=== PATIENT | male | born 1960 | race African-American/Black ===

== ENCOUNTER 2017-02-06 05:13 | Inpatient (IN) | payer OTHER ==
[~2017-02-06] VITALS: Ht 175.3 cm; Wt 107.5 kg
[2017-02-06] MEDS ORDERED: SODIUM CHLORIDE 0.9% 1,000 ML IV ONE (05:35)
[2017-02-06] MEDS ORDERED: INSULIN REGULAR (HUMULIN R) 300UNITS/3ML IV ONE (05:45)
[2017-02-06 06:01] LABS: BASOPHILS % 0.7 % (0.0-2.0); DIFFERENTIAL COMMENT 0; EOSINOPHILS % 0.3 % (0.0-5.0); HEMATOCRIT. 40.3 % (42.0-52.0); HEMOGLOBIN. 14.2 g/dL (14.0-18.0); LYMPHOCYTES % 15.4 % (20.0-50.0); MEAN CORPUSCULAR HEMOGLOBIN 27.5 pg (28.0-32.0); MEAN CORPUSCULAR HGB CONC 35.2 g/dL (31.0-37.0); MEAN CORPUSCULAR VOLUME 78.2 fL (80.0-94.0); MEAN PLATELET VOLUME 9.1 fl (7.4-10.4); MONOCYTES % 8.8 % (2.0-8.0); NEUTROPHILS % 74.8 % (40.0-76.0); PLATELET 176 x1000/uL (130-400); RED BLOOD CELL COUNT 5.15 mill/uL (4.7-6.1); RED CELL DISTRIBUTION WIDTH 14.4 % (11.6-14.6); WHITE BLOOD COUNT 10.2 x1000/uL (4.5-11.0)
[2017-02-06] MEDS ORDERED: AMLODIPINE 10MG TABLET PO ONE (06:15)
[2017-02-06] MEDS ORDERED: PIPERACILLIN SODIUM/TAZOBACTAM 4.5 G in DEXT 5% WATER 100 ML IV ONE (06:15)
[2017-02-06] MEDS ORDERED: VANCOMYCIN 1 G PREMIX 200 ML IV ONE (06:15)
[2017-02-06 06:16] LABS: ALANINE AMINOTRANSFERASE 22 IU/L (13-61); ALBUMIN 3.6 g/dL (3.4-5.0); ANION GAP 14; BETA HYDROXYBUTYRATE 0.1 mMol/L (0.0-0.3); CARBON DIOXIDE 25 mEq/L (21-32); CHLORIDE 101 mEq/L (98-107); INDEX HEMOLYSI 1 (1-3); INDEX ICTERIC 1 (1-4); INDEX LIPEMIC 1 (1-3); LIPASE 118 IU/L (73-393); TROPONIN I < 0.02 ng/mL (0.00-0.04); UREA NITROGEN BLOOD 17 mg/dL (7-21); eGFR > 60 mL/min (>60)
[2017-02-06 06:25] LABS: CLARITY URINE CLOUDY (CLEAR); COLOR URINE YELLOW (YELLOW); GLUCOSE URINE 3+ (NEGATIVE); KETONES URINE NEGATIVE (NEGATIVE); LEUKOCYTE ESTERASE URINE NEGATIVE (NEGATIVE); NITRITE URINE NEGATIVE (NEGATIVE); OCCULT BLOOD URINE NEGATIVE (NEGATIVE); PROTEIN URINE NEGATIVE (NEGATIVE); SPECIFIC GRAVITY URINE 1.038 (1.005-1.030); UROBILINOGEN URINE 0.2 E.U./dL (0.2-1.0)
[2017-02-06 07:00] LABS: *AMPHETAMINES SCREEN URINE NEGATIVE (NEGATIVE); *BARBITURATES SCREEN URINE NEGATIVE (NEGATIVE); *BENZODIAZEPINES SCREEN URINE NEGATIVE (NEGATIVE); *COCAINE SCREEN URINE NEGATIVE (NEGATIVE); CANNABINOID URINE SCREEN PRESUMTIVE POSITIVE (NEGATIVE); ECSTASY MDMA SCREEN URINE NEGATIVE (NEGATIVE); METHADONE URINE SCREEN NEGATIVE (NEGATIVE); OPIATES URINE SCREEN NEGATIVE (NEGATIVE); PHENCYCLIDINE URINE SCREEN NEGATIVE (NEGATIVE)
[2017-02-06 07:39] LABS: LACTIC ACID 2.3 mmol/L (0.4-2.0)
[2017-02-06 07:59] LABS: WBC URINE 0-2 /hpf (0-2)
[2017-02-06 08:00] LABS: BACTERIA URINE 2+; SQUAMOUS EPITHELIAL CELL URINE FEW /lpf (RARE/1+)
[2017-02-06 08:02] LABS: RBC URINE 0-2 /hpf (0-2)
[2017-02-06 09:07] LABS: ETHANOL BLOOD < 10 mg/dL; PHENYTOIN 0.6 ug/mL (10-20)
[2017-02-06 09:13] LABS: CARBAMAZEPINE < 0.5 ug/mL (4-12); PHENOBARBITAL < 2.1 ug/mL (15.0-40.0); VALPROIC ACID 3.5 ug/mL (50-100)
[2017-02-06] MEDS ORDERED: DIPHENHYDRAMINE 50MG/ML VIAL IV PRN (09:45)
[2017-02-06] MEDS ORDERED: ONDANSETRON HCL 4MG/2ML VIAL IV PRN (09:45)
[2017-02-06] MEDS ORDERED: ACETAMINOPHEN 325MG TABLET PO PRN (09:45)
[2017-02-06] MEDS ORDERED: IPRATROPIUM/ALBUTEROL 0.5-3(2.5)MG/3ML NEB INH PRN (09:45)
[2017-02-06] MEDS ORDERED: DEXTROSE 50% WATER 50ML SYRINGE IV PRN (09:45)
[2017-02-06] MEDS ORDERED: INSULIN DETEMIR UD 100 UNITS/ML SYR SUBCUT SCH (10:00)
[2017-02-06] MEDS: CLONIDINE 0.1MG TABLET PO PRN (10:50)
[2017-02-06] MEDS: BLOOD SUGAR DIAGNOSTIC STRIP TEST SCH ×3 (13:00→21:01)
[2017-02-06] MEDS: INSULIN LISPRO 100 UNITS/ML SUBCUT SCH ×3 (13:17→21:17)
[2017-02-06 14:37] VITALS: BP_SYST 140; BP_SYST 147; BP_DIAS 94
[2017-02-06] MEDS ORDERED: PIPERACILLIN/TAZ 3.375G PREMIX 50 ML IV SCH (15:00)
[2017-02-06] MEDS ORDERED: DIVALPROEX SODIUM 250MG ER TABLET PO SCH (15:30)
[2017-02-06] MEDS: AMLODIPINE 10MG TABLET PO SCH (16:03)
[2017-02-06] MEDS: DIVALPROEX SODIUM 500MG ER TABLET PO SCH (17:09)
[2017-02-06] MEDS: PIPERACILLIN/TAZ 3.375G PREMIX 50 ML IV SCH ×2 (17:09→23:10)
[2017-02-06] MEDS ORDERED: LORAZEPAM 2MG/ML CPJ IV NR (17:45)
[2017-02-06 20:10] VITALS: BP 134/80
[2017-02-06] MEDS: INSULIN DETEMIR UD 100 UNITS/ML SYR SUBCUT SCH (21:18)
[2017-02-07] VITALS: BP 125/66
[2017-02-07 04:00] VITALS: BP 155/103
[2017-02-07] MEDS: HYDROCODONE/ACETAMINOPHEN 5/325MG TABLET PO PRN ×2 (04:33→19:09)
[2017-02-07] MEDS: BLOOD SUGAR DIAGNOSTIC STRIP TEST SCH ×4 (06:27→21:14)
[2017-02-07] MEDS: INSULIN LISPRO 100 UNITS/ML SUBCUT SCH ×4 (06:53→21:23)
[2017-02-07 07:47] VITALS: BP 139/93
[2017-02-07] MEDS: PIPERACILLIN/TAZ 3.375G PREMIX 50 ML IV SCH ×3 (08:52→23:56)
[2017-02-07] MEDS: DIVALPROEX SODIUM 500MG ER TABLET PO SCH (08:52)
[2017-02-07] MEDS: AMLODIPINE 10MG TABLET PO SCH (08:53)
[2017-02-07 10:01] LABS: BASOPHILS % 0.8 % (0.0-2.0); DIFFERENTIAL COMMENT 0; EOSINOPHILS % 2.1 % (0.0-5.0); HEMOGLOBIN. 13.8 g/dL (14.0-18.0); LYMPHOCYTES % 28.3 % (20.0-50.0); MEAN CORPUSCULAR HEMOGLOBIN 27.2 pg (28.0-32.0); MEAN CORPUSCULAR HGB CONC 35.3 g/dL (31.0-37.0); MEAN CORPUSCULAR VOLUME 77.1 fL (80.0-94.0); MEAN PLATELET VOLUME 9.2 fl (7.4-10.4); NEUTROPHILS % 60.8 % (40.0-76.0); PLATELET 161 x1000/uL (130-400); RED BLOOD CELL COUNT 5.06 mill/uL (4.7-6.1); RED CELL DISTRIBUTION WIDTH 14.3 % (11.6-14.6); WHITE BLOOD COUNT 10.1 x1000/uL (4.5-11.0)
[2017-02-07 10:09] LABS: ALANINE AMINOTRANSFERASE 19 IU/L (13-61); ANION GAP 12; CALCIUM 8.6 mg/dL (8.5-10.1); CARBON DIOXIDE 30 mEq/L (21-32); CHLORIDE 100 mEq/L (98-107); HDL CHOLESTEROL 54 mg/dL (40-59); INDEX HEMOLYSI 1 (1-3); INDEX ICTERIC 1 (1-4); INDEX LIPEMIC 1 (1-3); LDL CHOLESTEROL 118 mg/dL (5-100); TRIGLYCERIDE 89 mg/dL (0-150); UREA NITROGEN BLOOD 9 mg/dL (7-21); eGFR > 60 mL/min (>60)
[2017-02-07] MEDS: INSULIN DETEMIR UD 100 UNITS/ML SYR SUBCUT SCH ×2 (11:05→21:23)
[2017-02-07 11:59] VITALS: BP 148/105
[2017-02-07] MEDS: CLONIDINE 0.1MG TABLET PO PRN (12:08)
[2017-02-07 16:00] VITALS: BP 132/81
[2017-02-07 20:00] VITALS: BP 131/82
[2017-02-08] VITALS: BP 109/60
[2017-02-08 04:00] VITALS: BP 140/66
[2017-02-08] MEDS: BLOOD SUGAR DIAGNOSTIC STRIP TEST SCH ×2 (06:24→11:15)
[2017-02-08] MEDS: INSULIN LISPRO 100 UNITS/ML SUBCUT SCH ×2 (06:24→12:28)
[2017-02-08] MEDS: HYDROCODONE/ACETAMINOPHEN 5/325MG TABLET PO PRN ×3 (07:09→12:30)
[2017-02-08 08:00] VITALS: BP 142/90
[2017-02-08] MEDS: PIPERACILLIN/TAZ 3.375G PREMIX 50 ML IV SCH (08:02)
[2017-02-08] MEDS: AMLODIPINE 10MG TABLET PO SCH (08:03)
[2017-02-08] MEDS: DIVALPROEX SODIUM 500MG ER TABLET PO SCH (08:19)
[2017-02-08] MEDS: INSULIN DETEMIR UD 100 UNITS/ML SYR SUBCUT SCH (10:24)
[2017-02-08] MEDS ORDERED: LORAZEPAM 2MG/ML CPJ IV NR (11:45)
[2017-02-08 12:00] VITALS: BP 132/83
[2017-02-08 16:00] VITALS: BP 136/89
[2017-02-09] MEDS ORDERED: DIVA-18 PO (07:09)
== END 2017-02-08 16:18 | disposition left against medical advice (07) | DRG 380 ==
LOC: ER 05:40 → 8WST 15:00
PROVIDERS: ADMIT Internal Medicine; ATTEND Internal Medicine
DX: E11.621 Type 2 diabetes mellitus with foot ulcer (principal); L97.529 Non-pressure chronic ulcer of other part of left foot with unspecified severity; E87.2 Acidosis; E11.65 Type 2 diabetes mellitus with hyperglycemia; E78.5 Hyperlipidemia, unspecified; F12.90 Cannabis use, unspecified, uncomplicated; G40.909 Epilepsy, unspecified, not intractable, without status epilepticus; I10 Essential (primary) hypertension; M20.42 Other hammer toe(s) (acquired), left foot; L03.116 Cellulitis of left lower limb; E78.00 Pure hypercholesterolemia, unspecified; Z59.0 Homelessness; Z72.0 Tobacco use; Z86.73 Personal history of transient ischemic attack (TIA), and cerebral infarction without residual deficits
CPT/HCPCS: 36415; 71010; 73630; 80053; 80061; 80156; 80165; 80184; 80185; 80305; 81001; 82010; 82962; 83036; 83605; 83690; 84484; 85025; 85651; 87040; 87070; 87077; 87086; 87186; 87205; 93005; 96361; 96365; 96367; 96372; 96375; 97022; 97162; 99285; G0482; J1815; J2060; J2543; J3370; J7030; J7040; J7060

== ENCOUNTER 2017-02-08 18:37 | Inpatient (IN) | payer MEDICAID, OTHER ==
[~2017-02-08] VITALS: Ht 188 cm; Wt 108.9 kg
[2017-02-08 20:05] LABS: BASOPHILS % 0.5 % (0.0-2.0); DIFFERENTIAL COMMENT 0; EOSINOPHILS % 0.3 % (0.0-5.0); HEMATOCRIT. 42.2 % (42.0-52.0); HEMOGLOBIN. 14.7 g/dL (14.0-18.0); LYMPHOCYTES % 10.7 % (20.0-50.0); MEAN CORPUSCULAR HGB CONC 34.8 g/dL (31.0-37.0); MEAN CORPUSCULAR VOLUME 77.6 fL (80.0-94.0); MEAN PLATELET VOLUME 8.9 fl (7.4-10.4); MONOCYTES % 8.5 % (2.0-8.0); PLATELET 198 x1000/uL (130-400); RED BLOOD CELL COUNT 5.44 mill/uL (4.7-6.1); RED CELL DISTRIBUTION WIDTH 14.4 % (11.6-14.6); WHITE BLOOD COUNT 13.2 x1000/uL (4.5-11.0)
[2017-02-08 20:08] LABS: CLARITY URINE CLOUDY (CLEAR); COLOR URINE YELLOW (YELLOW); GLUCOSE URINE NEGATIVE (NEGATIVE); KETONES URINE TRACE (NEGATIVE); LEUKOCYTE ESTERASE URINE NEGATIVE (NEGATIVE); NITRITE URINE NEGATIVE (NEGATIVE); OCCULT BLOOD URINE 3+ (NEGATIVE); PROTEIN URINE 1+ (NEGATIVE); SPECIFIC GRAVITY URINE 1.025 (1.005-1.030)
[2017-02-08 20:09] LABS: CHLORIDE 97 mEq/L (98-107); INDEX HEMOLYSI 1 (1-3); INDEX ICTERIC 1 (1-4); INDEX LIPEMIC 1 (1-3)
[2017-02-08 20:11] LABS: PROTHROMBIN TIME 10.2 sec
[2017-02-08 20:15] LABS: ALANINE AMINOTRANSFERASE 42 IU/L (13-61); ALBUMIN 3.2 g/dL (3.4-5.0); ANION GAP 13; CALCIUM 9.1 mg/dL (8.5-10.1); CARBON DIOXIDE 29 mEq/L (21-32); LIPASE 98 IU/L (73-393); UREA NITROGEN BLOOD 13 mg/dL (7-21)
[2017-02-08 20:18] LABS: eGFR > 60 mL/min (>60)
[2017-02-08 20:27] LABS: BACTERIA URINE TRACE; RBC URINE 25-50 /hpf (0-2); SQUAMOUS EPITHELIAL CELL URINE RARE /lpf (RARE/1+); WBC URINE 0-2 /hpf (0-2)
[2017-02-08] MEDS ORDERED: SODIUM CHLORIDE 0.9% 1,000 ML IV ONE (20:50)
[2017-02-08] MEDS ORDERED: VANCOMYCIN 1 G PREMIX 200 ML IV ONE (21:00)
[2017-02-08] MEDS ORDERED: PIPERACILLIN SODIUM/TAZOBACTAM 4.5 G in DEXT 5% WATER 100 ML IV ONE (21:00)
[2017-02-09] MEDS ORDERED: ONDANSETRON HCL 4MG/2ML VIAL IV PRN (03:45)
[2017-02-09] MEDS ORDERED: CLONIDINE 0.1MG TABLET PO PRN (03:45)
[2017-02-09 04:15] VITALS: BP 170/87
[2017-02-09 04:21] VITALS: BP 170/87
[2017-02-09] MEDS ORDERED: VANCOMYCIN 1 G PREMIX 200 ML IV SCH (06:00)
[2017-02-09] MEDS ORDERED: PIPERACILLIN/TAZ 3.375G PREMIX 50 ML IV SCH ×2 (06:00)
[2017-02-09] MEDS ORDERED: DEXTROSE 50% WATER 50ML SYRINGE IV PRN (06:15)
[2017-02-09] MEDS: MORPHINE SULFATE 2 MG/ML CPJ (NOT FOR IM USE) IV PRN ×4 (06:52→23:20)
[2017-02-09] MEDS: BLOOD SUGAR DIAGNOSTIC STRIP TEST SCH ×4 (07:03→21:16)
[2017-02-09] MEDS ORDERED: DIVA-18 PO (07:09)
[2017-02-09 08:00] VITALS: BP 129/94
[2017-02-09] MEDS: INSULIN LISPRO 100 UNITS/ML SUBCUT SCH ×4 (08:28→21:27)
[2017-02-09] MEDS: BENAZEPRIL 20MG TABLET PO SCH (08:29)
[2017-02-09] MEDS: AMLODIPINE 10MG TABLET PO SCH (08:29)
[2017-02-09 12:00] VITALS: BP 135/87
[2017-02-09] MEDS ORDERED: CEFTRIAXONE 2 G in DEXTROSE 5% WATER 50 ML IV SCH (14:00)
[2017-02-09] MEDS: DIVALPROEX SODIUM 500MG DR TABLET PO SCH ×2 (14:03→22:00)
[2017-02-09 16:00] VITALS: BP 114/67
[2017-02-09] MEDS: CEFTRIAXONE 2 G in DEXTROSE 5% WATER 50 ML IV SCH (18:40)
[2017-02-09 20:00] VITALS: BP 133/95
[2017-02-09] MEDS: INSULIN DETEMIR UD 100 UNITS/ML SYR SUBCUT SCH (21:27)
[2017-02-10] VITALS: BP 129/78
[2017-02-10 04:00] VITALS: BP 137/83
[2017-02-10] MEDS: BLOOD SUGAR DIAGNOSTIC STRIP TEST SCH ×4 (07:38→21:25)
[2017-02-10] MEDS: INSULIN LISPRO 100 UNITS/ML SUBCUT SCH ×4 (07:50→21:35)
[2017-02-10 08:00] VITALS: BP 135/85
[2017-02-10] MEDS: CEFTRIAXONE 2 G in DEXTROSE 5% WATER 50 ML IV SCH (09:04)
[2017-02-10] MEDS: DIVALPROEX SODIUM 500MG DR TABLET PO SCH ×2 (09:05→21:41)
[2017-02-10] MEDS: BENAZEPRIL 20MG TABLET PO SCH (09:05)
[2017-02-10] MEDS: AMLODIPINE 10MG TABLET PO SCH (09:05)
[2017-02-10 12:00] VITALS: BP 136/91
[2017-02-10] MEDS: MORPHINE SULFATE 2 MG/ML CPJ (NOT FOR IM USE) IV PRN ×2 (13:05→22:09)
[2017-02-10] MEDS ORDERED: CLIN-79 PO (14:23)
[2017-02-10] MEDS ORDERED: LEVVL SUBCUT (14:23)
[2017-02-10] MEDS ORDERED: DIVA-18 PO (14:23)
[2017-02-10] MEDS ORDERED: AMLO10TA80 PO (14:23)
[2017-02-10] MEDS ORDERED: BENA20TA3 PO (14:23)
[2017-02-10 16:00] VITALS: BP 139/91
[2017-02-10 20:00] VITALS: BP 130/91
[2017-02-10] MEDS: INSULIN DETEMIR UD 100 UNITS/ML SYR SUBCUT SCH (21:36)
[2017-02-11] VITALS: BP 135/77
[2017-02-11 04:00] VITALS: BP 142/84
[2017-02-11] MEDS: BLOOD SUGAR DIAGNOSTIC STRIP TEST SCH ×2 (06:10→13:35)
[2017-02-11 08:00] VITALS: BP 149/95
[2017-02-11] MEDS: INSULIN LISPRO 100 UNITS/ML SUBCUT SCH ×2 (09:23→13:44)
[2017-02-11] MEDS: CEFTRIAXONE 2 G in DEXTROSE 5% WATER 50 ML IV SCH (09:24)
[2017-02-11] MEDS: DIVALPROEX SODIUM 500MG DR TABLET PO SCH (09:24)
[2017-02-11] MEDS: BENAZEPRIL 20MG TABLET PO SCH (09:25)
[2017-02-11] MEDS: AMLODIPINE 10MG TABLET PO SCH (09:25)
[2017-02-11 12:00] VITALS: BP 123/82
[2017-02-11 13:52] VITALS: BP 123/82
[2017-02-11] MEDS ORDERED: BENAZEPRIL 20MG TABLET PO SCH (21:00)
== END 2017-02-11 15:15 | disposition home or self-care (01) | DRG 344 ==
LOC: ER 18:38 → 6EST 22:35
PROVIDERS: ADMIT Internal Medicine; ATTEND Internal Medicine
DX: E11.69 Type 2 diabetes mellitus with other specified complication (principal); M86.9 Osteomyelitis, unspecified; E11.52 Type 2 diabetes mellitus with diabetic peripheral angiopathy with gangrene; R65.10 Systemic inflammatory response syndrome (SIRS) of non-infectious origin without acute organ dysfunction; E44.0 Moderate protein-calorie malnutrition; E11.65 Type 2 diabetes mellitus with hyperglycemia; I10 Essential (primary) hypertension; G40.909 Epilepsy, unspecified, not intractable, without status epilepticus; F17.210 Nicotine dependence, cigarettes, uncomplicated; Z60.2 Problems related to living alone; F12.90 Cannabis use, unspecified, uncomplicated; E78.00 Pure hypercholesterolemia, unspecified; L03.116 Cellulitis of left lower limb; Z86.73 Personal history of transient ischemic attack (TIA), and cerebral infarction without residual deficits; Z68.30 Body mass index [BMI] 30.0-30.9, adult; Z91.19 Patient's noncompliance with other medical treatment and regimen
CPT/HCPCS: 36415; 73721; 80053; 81001; 82962; 83690; 85025; 85610; 87040; 93970; 96365; 96366; 96367; 96372; 96375; 99285; J0696; J1815; J2270; J2543; J3370; J7030; J7060

== ENCOUNTER 2017-08-19 10:57 | Emergency (ER) | payer OTHER ==
[~2017-08-19] VITALS: Ht 172.7 cm; Wt 75.0 kg
[~2017-08-19 10:57] MED LIST: AMLO10TA80 PO; BENA20TA3 PO; CLIN300C11 PO; DIVA-18 PO; LEVVL SUBCUT
[2017-08-19] MEDS ORDERED: SODIUM CHLORIDE 0.9% 1,000 ML IV ONE (12:18)
[2017-08-19] MEDS ORDERED: INSULIN REGULAR (HUMULIN R) 300UNITS/3ML IV ONE (12:30)
[2017-08-19 12:34] LABS: BASOPHILS % 0.9 % (0.0-2.0); HEMATOCRIT. 40.2 % (42.0-52.0); HEMOGLOBIN. 14.4 g/dL (14.0-18.0); LYMPHOCYTES % 25.1 % (20.0-50.0); MEAN CORPUSCULAR HEMOGLOBIN 27.7 pg (28.0-32.0); MEAN CORPUSCULAR VOLUME 77.2 fL (80.0-94.0); MONOCYTES % 4.3 % (2.0-8.0); NEUTROPHILS % 68.7 % (40.0-76.0); PLATELET 195 x1000/uL (130-400); RED BLOOD CELL COUNT 5.21 mill/uL (4.7-6.1); RED CELL DISTRIBUTION WIDTH 14.4 % (11.6-14.6)
[2017-08-19 12:42] LABS: INR 1.1; PARTIAL THROMBOPLASTIN TIME 25.5 sec (23.4-31.0); PROTHROMBIN TIME 10.9 sec (9.4-11.6)
[2017-08-19 12:51] LABS: CARBON DIOXIDE 28 mEq/L (21-32); CHLORIDE 102 mEq/L (98-107); ETHANOL BLOOD < 10 mg/dL; TROPONIN I < 0.02 ng/mL (0.00-0.04)
[2017-08-19 12:54] VITALS: BP 130/84
[2017-08-19 13:06] LABS: CLARITY URINE CLEAR (CLEAR); COLOR URINE YELLOW (YELLOW); GLUCOSE URINE 3+ (NEGATIVE); KETONES URINE TRACE (NEGATIVE); LEUKOCYTE ESTERASE URINE NEGATIVE (NEGATIVE); NITRITE URINE NEGATIVE (NEGATIVE); OCCULT BLOOD URINE NEGATIVE (NEGATIVE); PROTEIN URINE NEGATIVE (NEGATIVE); SPECIFIC GRAVITY URINE 1.034 (1.005-1.030)
[2017-08-19 13:16] LABS: *AMPHETAMINES SCREEN URINE NEGATIVE (NEGATIVE); *BARBITURATES SCREEN URINE NEGATIVE (NEGATIVE); *BENZODIAZEPINES SCREEN URINE NEGATIVE (NEGATIVE); *COCAINE SCREEN URINE NEGATIVE (NEGATIVE); CANNABINOID URINE SCREEN NEGATIVE (NEGATIVE); METHADONE URINE SCREEN NEGATIVE (NEGATIVE); OPIATES URINE SCREEN NEGATIVE (NEGATIVE); PHENCYCLIDINE URINE SCREEN NEGATIVE (NEGATIVE)
== END 2017-08-19 15:24 | disposition home or self-care (01) ==
LOC: ER 10:57
DX: E11.9 Type 2 diabetes mellitus without complications (principal); I10 Essential (primary) hypertension; E78.00 Pure hypercholesterolemia, unspecified; Z86.73 Personal history of transient ischemic attack (TIA), and cerebral infarction without residual deficits; Z79.4 Long term (current) use of insulin
CPT/HCPCS: 36415; 71010; 80053; 80305; 81001; 82962; 83690; 83735; 84484; 85025; 85610; 85730; 93005; 96361; 96374; 99285; G0482; J1815; Z7610; J7030

== ENCOUNTER 2018-04-06 00:21 | Emergency (ER) | payer OTHER ==
[~2018-04-06] VITALS: Ht 188 cm; Wt 109.0 kg
[2018-04-06] MEDS ORDERED: SODIUM CHLORIDE 0.9% 1,000 ML IV ONE (01:38)
[2018-04-06 02:26] LABS: BASOPHILS % 0.6 % (0.0-2.0); EOSINOPHILS % 1.7 % (0.0-5.0); LYMPHOCYTES % 35.3 % (20.0-50.0); MEAN CORPUSCULAR HEMOGLOBIN 27.5 pg (28.0-32.0); MEAN CORPUSCULAR VOLUME 78.1 fL (80.0-94.0); MEAN PLATELET VOLUME 9.2 fl (7.4-10.4); MONOCYTES % 6.6 % (2.0-8.0); NEUTROPHILS % 55.8 % (40.0-76.0); PLATELET 207 x1000/uL (130-400); RED BLOOD CELL COUNT 4.73 mill/uL (4.7-6.1); RED CELL DISTRIBUTION WIDTH 14.4 % (11.6-14.6)
[2018-04-06 02:31] LABS: CHLORIDE 102 mEq/L (98-107)
[2018-04-06 02:34] LABS: PROTHROMBIN TIME 10.4 sec (9.4-11.6)
[2018-04-06 02:36] LABS: ETHANOL BLOOD < 10 mg/dL
[2018-04-06 02:39] LABS: BETA HYDROXYBUTYRATE 0.1 mMol/L (0.0-0.3)
[2018-04-06 03:51] VITALS: BP 133/88
== END 2018-04-06 04:15 | disposition home or self-care (01) ==
LOC: ER 00:21
DX: E11.65 Type 2 diabetes mellitus with hyperglycemia (principal); I10 Essential (primary) hypertension; F31.9 Bipolar disorder, unspecified; F17.200 Nicotine dependence, unspecified, uncomplicated; Z79.4 Long term (current) use of insulin; Z86.73 Personal history of transient ischemic attack (TIA), and cerebral infarction without residual deficits
CPT/HCPCS: 36415; 80053; 82010; 82947; 82962; 85025; 85610; 93005; 96360; 99285; G0482; J7030; Z7610

== ENCOUNTER 2018-04-25 17:19 | Emergency (ER) | payer OTHER ==
[~2018-04-25] VITALS: Ht 188 cm; Wt 109.0 kg
[2018-04-25] MEDS ORDERED: SODIUM CHLORIDE 0.9% 1,000 ML IV ONE (17:58)
[2018-04-25 18:17] LABS: BASOPHILS % 0.8 % (0.0-2.0); EOSINOPHILS % 1.8 % (0.0-5.0); HEMATOCRIT. 41.2 % (42.0-52.0); HEMOGLOBIN. 14.4 g/dL (14.0-18.0); LYMPHOCYTES % 34.7 % (20.0-50.0); MEAN CORPUSCULAR HEMOGLOBIN 27.4 pg (28.0-32.0); MEAN CORPUSCULAR VOLUME 78.2 fL (80.0-94.0); MONOCYTES % 5.2 % (2.0-8.0); NEUTROPHILS % 57.5 % (40.0-76.0); PLATELET 269 x1000/uL (130-400); RED BLOOD CELL COUNT 5.28 mill/uL (4.7-6.1); RED CELL DISTRIBUTION WIDTH 14.9 % (11.6-14.6)
[2018-04-25 18:31] LABS: BETA HYDROXYBUTYRATE 0.1 mMol/L (0.0-0.3)
[2018-04-25 19:13] LABS: BG BASE EXCESS 1.8 mmol/L (-2.0-2.0); BG DEOXYHEMOGLOBIN 5.3 % (0.0-5.0); BG FRACTION INSPIRED OXYGEN 21; BG HCO3 ACT 26.6 mmol/L (22.0-26.0); BG METHEMOGLOBIN 0.3 % (0.0-1.5); BG OXYGEN SATURATION 94.5 % (92.0-98.5); BG OXYHEMOGLOBIN 91.4 % (94.0-97.0); BG PCO2 42.3 mmHg (35.0-45.0); BG PH 7.417 (7.350-7.450); BG PO2 73.3 mmHg (75.0-100.0); BG SAMPLE SITE RIGHT RADIAL; BG TOTAL HEMOGLOBIN 14.6 g/dL (12.0-18.0); BG VENT MODE ROOM AIR
[2018-04-25 19:29] LABS: CHLORIDE 102 mEq/L (98-107)
[2018-04-25] MEDS ORDERED: INSULIN REGULAR (HUMULIN R) 300UNITS/3ML IV ONE (19:45)
[2018-04-25] MEDS ORDERED: HYDRALAZINE HCL 50MG TABLET PO ONE (20:00)
[2018-04-25 20:44] LABS: CLARITY URINE CLEAR (CLEAR); COLOR URINE YELLOW (YELLOW); KETONES URINE NEGATIVE (NEGATIVE); LEUKOCYTE ESTERASE URINE NEGATIVE (NEGATIVE); NITRITE URINE NEGATIVE (NEGATIVE); OCCULT BLOOD URINE NEGATIVE (NEGATIVE); PROTEIN URINE NEGATIVE (NEGATIVE); SPECIFIC GRAVITY URINE 1.043 (1.005-1.030)
[2018-04-25 21:20] VITALS: BP 150/80
== END 2018-04-25 21:21 | disposition home or self-care (01) ==
LOC: ER 17:19
DX: I10 Essential (primary) hypertension (principal); E11.65 Type 2 diabetes mellitus with hyperglycemia; I69.354 Hemiplegia and hemiparesis following cerebral infarction affecting left non-dominant side; Z79.4 Long term (current) use of insulin
CPT/HCPCS: 36415; 36600; 71045; 80053; 81003; 82010; 82375; 82805; 82962; 84484; 85025; 96361; 96374; 99285; J1815; J7030; Z7610

== ENCOUNTER 2018-05-16 15:43 | Emergency (ER) | payer OTHER ==
[~2018-05-16] VITALS: Ht 182.9 cm; Wt 116.0 kg
[~2018-05-16 15:43] MED LIST changes: +BENA20TA10 PO; -BENA20TA3 PO
[2018-05-16] MEDS ORDERED: SODIUM CHLORIDE 0.9% 1,000 ML IV ONE ×2 (17:30)
[2018-05-16 17:34] VITALS: BP 137/92
== END 2018-05-16 22:42 | disposition home or self-care (01) ==
LOC: ER 15:52
DX: E11.65 Type 2 diabetes mellitus with hyperglycemia (principal); I10 Essential (primary) hypertension; I69.351 Hemiplegia and hemiparesis following cerebral infarction affecting right dominant side; F31.9 Bipolar disorder, unspecified; Z59.0 Homelessness; Z79.4 Long term (current) use of insulin; Z91.14 Patient's other noncompliance with medication regimen
CPT/HCPCS: 82962; 93005; 96360; 99284; J7030; Z7610; 99283

== ENCOUNTER 2018-05-29 08:58 | Emergency (ER) | payer MEDICAID, OTHER ==
[~2018-05-29] VITALS: Ht 188 cm; Wt 113.0 kg
[~2018-05-29 08:58] MED LIST changes: -BENA20TA10 PO; +BENA20TA3 PO
[2018-05-29] MEDS ORDERED: SODIUM CHLORIDE 0.9% 1,000 ML IV ONE (09:18)
[2018-05-29 10:06] LABS: BASOPHILS % 0.9 % (0.0-2.0); EOSINOPHILS % 2.1 % (0.0-5.0); HEMATOCRIT. 37.2 % (42.0-52.0); HEMOGLOBIN. 12.8 g/dL (14.0-18.0); LYMPHOCYTES % 41.5 % (20.0-50.0); MEAN CORPUSCULAR HEMOGLOBIN 26.7 pg (28.0-32.0); MEAN CORPUSCULAR VOLUME 77.4 fL (80.0-94.0); MONOCYTES % 6.3 % (2.0-8.0); NEUTROPHILS % 49.2 % (40.0-76.0); RED BLOOD CELL COUNT 4.81 mill/uL (4.7-6.1); RED CELL DISTRIBUTION WIDTH 14.8 % (11.6-14.6)
[2018-05-29 10:11] LABS: CHLORIDE 101 mEq/L (98-107)
[2018-05-29 10:15] LABS: AMYLASE 66 IU/L (25-115)
[2018-05-29 10:35] LABS: PLATELET 159 x1000/uL (130-400)
[2018-05-29 10:42] LABS: BETA HYDROXYBUTYRATE 0.1 mMol/L (0.0-0.3)
[2018-05-29 11:25] LABS: CLARITY URINE CLEAR (CLEAR); COLOR URINE YELLOW (YELLOW); KETONES URINE NEGATIVE (NEGATIVE); LEUKOCYTE ESTERASE URINE NEGATIVE (NEGATIVE); NITRITE URINE NEGATIVE (NEGATIVE); OCCULT BLOOD URINE NEGATIVE (NEGATIVE); PH URINE 6.5 (4.5-8.0); PROTEIN URINE NEGATIVE (NEGATIVE); SPECIFIC GRAVITY URINE 1.015 (1.005-1.030)
[2018-05-29 11:41] VITALS: BP 165/97
== END 2018-05-29 12:08 | disposition home or self-care (01) ==
LOC: ER 09:36
DX: R53.1 Weakness (principal); E11.65 Type 2 diabetes mellitus with hyperglycemia; I10 Essential (primary) hypertension; F17.200 Nicotine dependence, unspecified, uncomplicated; Z79.4 Long term (current) use of insulin; Z79.899 Other long term (current) drug therapy; Z86.73 Personal history of transient ischemic attack (TIA), and cerebral infarction without residual deficits
CPT/HCPCS: 36415; 71045; 80053; 81003; 82010; 82150; 82962; 83690; 84484; 85025; 93005; 96360; 96361; 99285; J7030; Z7610

== ENCOUNTER 2018-05-29 15:40 | Emergency (ER) | payer MEDICAID, OTHER ==
[~2018-05-29] VITALS: Ht 188 cm; Wt 113.0 kg
[2018-05-29 22:22] VITALS: BP 180/95
== END 2018-05-29 23:14 | disposition home or self-care (01) ==
LOC: ER 15:40
DX: E11.65 Type 2 diabetes mellitus with hyperglycemia (principal); M62.429 Contracture of muscle, unspecified upper arm; I10 Essential (primary) hypertension; F17.200 Nicotine dependence, unspecified, uncomplicated; Z79.4 Long term (current) use of insulin
CPT/HCPCS: 71045; 82962; 99283

== ENCOUNTER 2018-06-27 06:17 | Emergency (ER) | payer OTHER ==
[~2018-06-27] VITALS: Ht 182.9 cm; Wt 84.0 kg
[~2018-06-27 06:17] MED LIST changes: +BENA20TA10 PO; -BENA20TA3 PO
[2018-06-27] MEDS ORDERED: ACETAMINOPHEN 500MG TABLET PO ONE (08:00)
[2018-06-27 08:35] VITALS: BP 138/86
== END 2018-06-27 08:37 | disposition home or self-care (01) ==
LOC: ER 06:17
DX: M25.552 Pain in left hip (principal); E11.9 Type 2 diabetes mellitus without complications; I10 Essential (primary) hypertension; F17.200 Nicotine dependence, unspecified, uncomplicated; Z86.73 Personal history of transient ischemic attack (TIA), and cerebral infarction without residual deficits; W01.0XXA Fall on same level from slipping, tripping and stumbling without subsequent striking against object, initial encounter; Y93.89 Activity, other specified; Y92.488 Other paved roadways as the place of occurrence of the external cause
CPT/HCPCS: 99283

== ENCOUNTER 2018-06-28 11:39 | Emergency (ER) | payer OTHER ==
[~2018-06-28] VITALS: Ht 188 cm; Wt 90.0 kg
[2018-06-28 11:43] VITALS: BP 158/90
== END 2018-06-28 16:18 | disposition left against medical advice (07) ==
LOC: ER 11:39
DX: M79.605 Pain in left leg (principal); E11.9 Type 2 diabetes mellitus without complications; I10 Essential (primary) hypertension; F17.200 Nicotine dependence, unspecified, uncomplicated; Z86.73 Personal history of transient ischemic attack (TIA), and cerebral infarction without residual deficits; Z53.21 Procedure and treatment not carried out due to patient leaving prior to being seen by health care provider

== ENCOUNTER 2018-08-17 01:09 | Emergency (ER) | payer MEDICAID, OTHER ==
[~2018-08-17] VITALS: Ht 188 cm; Wt 113.0 kg
[2018-08-17] MEDS ORDERED: SODIUM CHLORIDE 0.9% 1,000 ML IV ONE (06:25)
[2018-08-17] MEDS ORDERED: METFORMIN HCL 500MG TABLET PO ONE ×2 (06:45→22:30)
[2018-08-18 10:56] VITALS: BP 145/91
[2018-08-26] MEDS ORDERED: INSU100I28 SQ (20:53)
== END 2018-08-18 10:59 | disposition home or self-care (01) ==
LOC: ER 01:09
DX: E11.65 Type 2 diabetes mellitus with hyperglycemia (principal); F31.9 Bipolar disorder, unspecified; F17.200 Nicotine dependence, unspecified, uncomplicated; Z79.899 Other long term (current) drug therapy
CPT/HCPCS: 82962; 99283; J7030; Z7610

== ENCOUNTER 2018-08-18 19:26 | Emergency (ER) | payer OTHER ==
[~2018-08-18] VITALS: Ht 188 cm; Wt 113.0 kg
[2018-08-18 19:29] VITALS: BP 160/95
[2018-08-26] MEDS ORDERED: INSU100I28 SQ (20:53)
== END 2018-08-18 23:09 | disposition left against medical advice (07) ==
LOC: ER 19:26
DX: R73.9 Hyperglycemia, unspecified (principal); Z53.21 Procedure and treatment not carried out due to patient leaving prior to being seen by health care provider
CPT/HCPCS: 82962

== ENCOUNTER 2018-08-20 12:26 | Emergency (ER) | payer OTHER ==
[~2018-08-20] VITALS: Ht 175.3 cm; Wt 79.0 kg
[2018-08-20] MEDS ORDERED: METFORMIN HCL 500MG TABLET PO ONE (14:15)
[2018-08-20 14:50] LABS: BASOPHILS % 0.6 % (0.0-2.0); EOSINOPHILS % 0.7 % (0.0-5.0); HEMATOCRIT. 42.6 % (42.0-52.0); HEMOGLOBIN. 14.9 g/dL (14.0-18.0); LYMPHOCYTES % 31.7 % (20.0-50.0); MEAN CORPUSCULAR HEMOGLOBIN 27.9 pg (28.0-32.0); MEAN CORPUSCULAR VOLUME 79.7 fL (80.0-94.0); MEAN PLATELET VOLUME 9.3 fl (7.4-10.4); MONOCYTES % 7.5 % (2.0-8.0); NEUTROPHILS % 59.5 % (40.0-76.0); PLATELET 221 x1000/uL (130-400); RED BLOOD CELL COUNT 5.35 mill/uL (4.7-6.1); RED CELL DISTRIBUTION WIDTH 14.7 % (11.6-14.6)
[2018-08-20 14:55] LABS: CHLORIDE 102 mEq/L (98-107)
[2018-08-20] MEDS ORDERED: SODIUM CHLORIDE 0.9% 1,000 ML IV ONE (15:14)
[2018-08-20] MEDS ORDERED: INSULIN REGULAR (HUMULIN R) 300UNITS/3ML IV ONE (15:15)
[2018-08-20 18:54] VITALS: BP 180/72
[2018-08-26] MEDS ORDERED: INSU100I28 SQ (20:53)
== END 2018-08-20 19:00 | disposition home or self-care (01) ==
LOC: ER 13:32
DX: E11.65 Type 2 diabetes mellitus with hyperglycemia (principal); I10 Essential (primary) hypertension; F31.9 Bipolar disorder, unspecified; I69.354 Hemiplegia and hemiparesis following cerebral infarction affecting left non-dominant side; F17.200 Nicotine dependence, unspecified, uncomplicated; Z79.4 Long term (current) use of insulin
CPT/HCPCS: 36415; 80053; 85025; 96361; 96374; 99284; J1815; J7030; Z7610

== ENCOUNTER 2018-08-21 19:40 | Emergency (ER) | payer MEDICAID, OTHER ==
[~2018-08-21] VITALS: Ht 170.2 cm; Wt 84.0 kg
[2018-08-21 22:50] VITALS: BP 171/103
[2018-08-26] MEDS ORDERED: INSU100I28 SQ (20:53)
== END 2018-08-21 22:50 | disposition left against medical advice (07) ==
LOC: ER 19:40 → CANBEDREQ 22:55
DX: R42 Dizziness and giddiness (principal); E11.9 Type 2 diabetes mellitus without complications; I10 Essential (primary) hypertension; F31.9 Bipolar disorder, unspecified; Z86.73 Personal history of transient ischemic attack (TIA), and cerebral infarction without residual deficits; Z79.899 Other long term (current) drug therapy
CPT/HCPCS: 70450; 71045; 82962; 93005; 99284; Z7610